=== PATIENT | female | born 1975 | race American Indian/Alaskan Native ===

== ENCOUNTER 2019-03-08 12:11 | Outpatient (CLI) | payer OTHER | END 2019-03-08 13:03 | disposition home or self-care (01) | LOC: NST 12:11 | DX: Z34.83 Encounter for supervision of other normal pregnancy, third trimester (principal) ==

== ENCOUNTER 2019-04-06 14:21 | Inpatient (IN) | payer OTHER ==
[~2019-04-06] VITALS: Ht 154.9 cm; Wt 93.0 kg
[2019-05-02] MEDS ORDERED: PRENATAL TABLE1 EAC1 PO (06:51)
== END 2019-05-04 12:08 | disposition home or self-care (01) | DRG 807 ==
LOC: OB/GYN 04-13 13:00 → LDR 05-02 05:51 → OB/GYN 05-02 13:30
PROVIDERS: ADMIT Obstetrics & Gynecology Maternal & Fetal Medicine
PROC: 10E0XZZ Delivery of Products of Conception, External Approach (ICD-10-PCS; principal; 2019-05-02)
PROC: 10907ZC Drainage of Amniotic Fluid, Therapeutic from Products of Conception, Via Natural or Artificial Opening (ICD-10-PCS; 2019-05-02)
PROC: 3E033VJ Introduction of Other Hormone into Peripheral Vein, Percutaneous Approach (ICD-10-PCS; 2019-05-02)
PROC: 4A1HXCZ Monitoring of Products of Conception, Cardiac Rate, External Approach (ICD-10-PCS; 2019-05-02)
DX: O80 Encounter for full-term uncomplicated delivery (principal); Z37.0 Single live birth; Z3A.38 38 weeks gestation of pregnancy

== ENCOUNTER 2019-04-13 10:42 | Outpatient (CLI) | payer OTHER | END 2019-04-13 14:23 | disposition home or self-care (01) | LOC: NST 10:42 → OBS/DEL 10:42 | DX: O60.03 Preterm labor without delivery, third trimester (principal); Z34.03 Encounter for supervision of normal first pregnancy, third trimester ==

== ENCOUNTER 2019-05-01 08:50 | Outpatient (CLI) | payer OTHER ==
[2019-05-02] MEDS ORDERED: PRENATAL TABLE1 EAC1 PO (06:51)
== END 2019-05-01 10:35 | disposition home or self-care (01) ==
LOC: NST 08:50
DX: Z34.83 Encounter for supervision of other normal pregnancy, third trimester (principal)